=== PATIENT | male | born 1945 | race Caucasian/White ===

== ENCOUNTER → 2024-09-22 12:33 | Outpatient (REF) | payer OTHER, SELFPAY | LOC: HWRCS 12:33 | PROVIDERS: ATTENDING PHYSICIAN Internal Medicine Cardiovascular Disease; FAMILY PHYSICIAN Internal Medicine | DX: R06.09 Other forms of dyspnea (principal) | CPT/HCPCS: 93306 ==

== ENCOUNTER → 2024-10-05 07:06 | Outpatient (REF) | payer OTHER, SELFPAY | LOC: RCS 07:06 | PROVIDERS: ATTENDING PHYSICIAN Internal Medicine Cardiovascular Disease; FAMILY PHYSICIAN Internal Medicine | DX: R07.89 Other chest pain (principal); R06.09 Other forms of dyspnea | CPT/HCPCS: 78452; 93017; A9500; J2785 ==

== ENCOUNTER 2024-11-14 09:11 | Day surgery (SDC) | payer OTHER, SELFPAY ==
[2024-11-14 10:19] LABS: Glucose - Point of Care 172 mg/dl (70-99)
[2024-11-14] MEDS: ELIQUIS 5 MG PO ×2 (10:58→10:59)
--- NOTE | 2024-11-14 13:07 | ITS.CL.CARDI ---
[facility] - Cardioversion
Cardioversion
Procedure Report:
Date of Procedure: 11/14/24
Procedure: Cardioversion
Indication: Symptomatic atrial fibrillation
Performing Physician: Adrienne Chan DO [facility]
Anticoagulation: Eliquis 5 mg twice daily.
Technique: The patient was brought to the holding area. Signed informed consent was obtained. A time out was called and performed. The patient was anesthetized by the anesthesia service. Anticoagulation status was reviewed and appropriate. R2 pads
were placed anteriorly and posteriorly. A 200 J synchronized biphasic shock restored normal sinus rhythm. Postprocedure EKG sinus bradycardia with heart rate 54 bpm and first-degree AV block. PAC present. Otherwise normal EKG. There were no
complications.
Conclusion: Uncomplicated cardioversion from atrial fibrillation to sinus rhythm.
Recommendation: Routine post cardioversion care. Continue penitentiary anticoagulation.
== END 2024-11-14 11:22 | disposition home or self-care (01) ==
LOC: CATH 09:11
PROVIDERS: ATTENDING PHYSICIAN Internal Medicine Cardiovascular Disease; FAMILY PHYSICIAN Internal Medicine; REFERRING PHYSICIAN Internal Medicine Cardiovascular Disease
DX: I48.0 Paroxysmal atrial fibrillation (principal); Z79.01 Long term (current) use of anticoagulants; I10 Essential (primary) hypertension; I25.10 Atherosclerotic heart disease of native coronary artery without angina pectoris; Z79.84 Long term (current) use of oral hypoglycemic drugs; Z79.899 Other long term (current) drug therapy
CPT/HCPCS: 82962; 92960; 93005